=== PATIENT | female | born 1990 | race Caucasian/White ===

== ENCOUNTER 2016-07-10 14:33 | Emergency (ER) | payer OTHER ==
[~2016-07-10] VITALS: Ht 154.9 cm; Wt 51.7 kg
--- NOTE | 2016-07-10 17:44 | ED GI/GU/ABDOMINAL COMPLAINT ---
History of Present Illness General Chief Complaint: Female Urogenital Problems Stated Complaint: PELVIC PAIN,SPOTTING ?ISSUES WITH IUD Source: patient Exam Limitations: no limitations Vital Signs & Intake/Output Vital Signs & Intake/Output Vital Signs Date Time Temp Pulse Resp B/P B/P Pulse O2 O2 Flow FiO2 Mean Ox Delivery Rate 07/10 1847 97.4 76 12 101/61 99 Room Air 07/10 1437 98.1 82 15 110/71 99 Room Air Room Air ED Intake and Output 07/11 0000 07/10 1200 Intake Total Output Total Balance Patient 114 lb Weight Allergies Coded Allergies: No Known Allergies (07/10/16) Reconcile Medications Ibuprofen 800 MG TABLET 1 TAB PO TID PAIN Triage Note: PT TO ED FOR C/C OF PELVIC PAIN THAT STARTED TWO DAYS AGO. PT HAS AN IUD WHICH SHE HAS HAD FOR 7 MONTHS AND HAS HAD IRREGULAR PERIODS, BUT REPORTS SHE IS NOW SPOTTING WHICH IS ABNORMAL FOR HER. LMP June. DENIES URINARY ISSUES. Triage Nurses Notes Reviewed? yes ? n Is pt currently ? No Onset: Abrupt Duration: day(s):, intermittent Timing: recent history Location: pelvic No Modifying Factors: none HPI: 25-year-old female comes into emergency room for further evaluation of lower abdominal pain and intermittent vaginal spotting is been going on for the past few days. Patient has had an IUD in place since November of last year. Denies any fever chills vomiting. Denies any changes in bowel movement. Denies any vaginal discharge or urinary symptoms. Pain is located low in the pelvis. Patient reports that she doesn't usually get this intermittent spotting which is not normal for her. She cannot get in with her new [employer] TECHNICIAN doctor to August 04. Denies any other associated symptoms. (VERO OTERO) Past History Travel History Traveled to [place] past 21 day No Medical History Any Pertinent Medical History? 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 No (VERO OTERO) Review of Systems Review of Systems Constitutional: Reports: no symptoms. EENTM: Reports: no symptoms. Respiratory: Reports: no symptoms. Cardiovascular: Reports: no symptoms. GI: Reports: see HPI. Genitourinary: Reports: see HPI. Musculoskeletal: Reports: no symptoms. Skin: Reports: no symptoms. Neurological/Psychological: Reports: no symptoms. Hematologic/Endocrine: Reports: no symptoms. Immunologic/Allergic: Reports: no symptoms. All Other Systems: Reviewed and Negative (VERO OTERO) Physical Exam Physical Exam General Appearance: well developed/nourished, alert, awake Head: atraumatic, normal appearance Eyes: Bilateral: normal appearance. Ears, Nose, Throat, Mouth: hearing grossly normal, moist mucous membrane Neck: normal inspection, full range of motion Respiratory: normal breath sounds, no respiratory distress Cardiovascular: regular rate/rhythm Gastrointestinal: soft, tenderness Back: normal inspection Extremities: normal range of motion Neurologic/Psych: awake, alert, oriented x 3, normal gait Skin: intact, normal color Core Measures ACS in differential dx? No Severe Sepsis Present: No Septic Shock Present: No (VERO OTERO) Progress Differential Diagnosis: appendicitis, biliary colic, bowel obstruction, colon cancer, cholecystitis, diverticulitis, ectopic , endometritis, gastritis, hepatitis, hernia, hemorrhoids, inflamm bowel dis, Kirti-Mustapha tear, ovarian cyst, ovarian torsion, pancreatitis, PID/cervicitis, peptic ulcer, PUD/ GERD, perforated viscous, SBO, threatened AB, UTI/pyelo Plan of Care: Orders Procedure Date/time Status COMPREHENSIVE METABOLIC PANEL 07/10 1659 Complete CBC WITHOUT DIFFERENTIAL 07/10 1659 Complete URINE 07/10 1441 Complete URINALYSIS 07/10 1441 Complete Laboratory Tests 07/10/16 1750: Anion Gap 13, Estimated GFR > 60, BUN/Creatinine Ratio 18.3, Glucose 88, Calcium 9.7, Total Bilirubin 0.3, AST 20, ALT 32, Alkaline Phosphatase 56, Total Protein 7.6, Albumin 4.7, Globulin 2.9, Albumin/Globulin Ratio 1.6, CBC w Diff NO MAN DIFF REQ, RBC 4.43, MCV 74.8 L, MCH 23.6 L, RDW 16.4 H, MPV 9.3, Gran % 47.5, Lymphocytes % 39.2, Monocytes % 10.4 H, Eosinophils % 1.8, Basophils % 1.1, Absolute Granulocytes 2.8, Absolute Lymphocytes 2.3, Absolute Monocytes 0.6, Absolute Eosinophils 0.1, Absolute Basophils 0.1, PUBS MCHC 31.6 L 07/10/16 1450: Urinalysis MOD H, Urine Color YEL, Urine Clarity HAZY H, Urine pH 6.0, Ur Specific [place] 1.020, Urine Protein NEG, Urine Ketones NEG, Urine Nitrite NEG, Urine Bilirubin NEG, Urine Urobilinogen 0.2, Ur Leukocyte Esterase TRACE H, Ur Microscopic SEDIMENT EXAMINED, Urine RBC 1-3, Urine WBC 1-3 H, Ur Epithelial Cells MANY H, Urine Bacteria MOD H, Urine Hemoglobin LARGE H, Urine Glucose NEG, Urine Test NEGATIVE Diagnostic Imaging: Viewed by Me: Ultrasound. Discussed w/RAD: Ultrasound. Radiology Impression: SERVICE DATE: 07/10/16 EXAM TYPE: US - US- TRANSVAGINAL EXAMINATION: US TRANSVAGINAL CLINICAL INFORMATION: Pelvic pain. Confirm IUD placement. COMPARISON: No relevant prior studies are available for comparison. TECHNIQUE: Transabdominal and transvaginal imaging was performed. FINDINGS: The uterus is retroverted and measures 6.7 x 4.1 x 5.4 cm (sagittal x AP x transverse) for a uterine volume of 77.7 mL. There are no myometrial lesions. The cervical length measures 2.4 cm. The endometrium is unremarkable with a thickness of 0.5 cm. An IUD is noted within the endometrial cavity. The right ovary is sonographically unremarkable and measures 5.3 x 2.2 x 2.1 cm ( volume = 13.5 mL). There is Doppler detectable vascular flow to the right ovary. The left ovary is sonographically unremarkable and measures 4.0 x 2.5 x 2.1 cm ( volume = 11.3 mm). There is Doppler detectable vascular flow to the left ovary. There is no free fluid within the pelvis. IMPRESSION: 1. IUD noted within the endometrial cavity. Retroverted uterus. 2. Normal ultrasound examination of the bilateral ovaries. Doppler detectable vascular flow within the bilateral ovaries. DICTATED BY: MANFRED PUGH MD Initial ED EKG: none (MAGDALENA TORRES,VERO) Departure Departure Disposition: HOME OR SELF CARE Condition: Stable Clinical Impression Primary Impression: Pelvic pain Referrals: TEDDY ZHENG MD (PCP/Family) BALBIR CHEUNG DO Additional Instructions: Take ibuprofen as prescribed. Follow-up with [employer] TECH[employer] doctor provided. Return if any concerns worsening symptoms. Please go over all results of today's visit with your primary care doctor. Contact your primary care doctor to let them know you were here in the emergency room. There may be nonspecific findings which may not be related to your visit today here in the emergency room but may require further evaluation and chronic monitoring by your primary care doctor. If you had a laceration today the chance of foreign body always remains. You should follow-up with your primary care doctor for recheck in 3-5 days for a wound check. If you had an x-ray done there is a chance that a fracture could have been missed on initial read and you should follow-up with your primary care doctor for repeat x-rays if symptoms persist. If your blood pressure was elevated here in the emergency room please have rechecked by her primary care doctor within the next 48 hours by your primary care doctor. If you were prescribed a narcotic here in the emergency room or any type of controlled substances you're not allowed to drive while taking this medication or operate any type of heavy machinery. Narcotics can make you feel lightheaded dizziness nausea and can cause constipation. You may need to tow picker a stool softener. Thank you for choosing [facility] emergency room. Please return to the emergency room immediately if you have any other concerns worsening of symptoms. Departure Forms: Customer Survey General Discharge Information Prescriptions: Current Visit Scripts Ibuprofen 1 TAB PO TID #30 TAB Comments 07/10/2016 No suspicion for appendicitis. Discussed early possibility the patient. No symptoms: Appendicitis. I feel the pain is likely related to the patient's IUD. Patient declined me removing it. She is going to follow-up with [facility] TECHNICIAN doctor. No guarding on exam. Hemodynamically stable. Understands and agrees with plan of care. (VERO OTERO) PA/HANDBAG PARTS CUTTER Co-Sign Statement Statement: ED Attending supervision documentation- I saw and evaluated the patient. I have also reviewed all the pertinent lab results and diagnostic results. I agree with the findings and the plan of care as documented in the PA's/HANDBAG PARTS CUTTER's documentation. x I have reviewed the ED Record and agree with the PA's/HANDBAG PARTS CUTTER's documentation. [] Additions or exceptions (if any) to the PAs/HANDBAG PARTS CUTTER's note and plan are summarized below: [] (BOZENA YU,FRANCO)
[2016-07-10 18:05] LABS: ABSOLUTE BASOPHIL COUNT 0.1 /CUMM (0.0-0.2); ABSOLUTE EOSINOPHIL COUNT 0.1 /CUMM (0.0-0.7); ABSOLUTE GRANULOCYTE CT 2.8 /CUMM (1.4-6.5); ABSOLUTE LYMPH COUNT 2.3 /CUMM (1.2-3.4); ABSOLUTE MONOCYTE COUNT 0.6 /CUMM (0.10-0.60); BASOPHIL % 1.1 % (0.0-2.0); EOSINOPHIL % 1.8 % (0-5); GRANULOCYTE % 47.5 % (42.2-75.2); HEMATOCRIT 33.1 % (37-47); MEAN CORPUSCULAR HGB 23.6 PG (27.0-31.0); MEAN CORPUSCULAR HGB CONC 31.6 G/DL (33.0-37.0); MEAN CORPUSCULAR VOLUME 74.8 FL (81.0-99.0); MEAN PLATELET VOLUME 9.3 FL (7.4-10.4); PLATELET COUNT 303 /CUMM (130-400); RBC DISTRIBUTION WIDTH 16.4 % (11.5-14.5); RED BLOOD CELL CT 4.43 /CUMM (4.20-5.40); WHITE BLOOD CELL COUNT 5.8 /CUMM (4.8-10.8)
[2016-07-10 18:47] VITALS: BP 101/61
--- NOTE | 2016-07-10 19:51 | ULTRASOUND REPORT ---
EXAMINATION: US TRANSVAGINAL CLINICAL INFORMATION: Pelvic pain. Confirm IUD placement. COMPARISON: No relevant prior studies are available for comparison. TECHNIQUE: Transabdominal and transvaginal imaging was performed. FINDINGS: The uterus is retroverted and measures 6.7 x 4.1 x 5.4 cm (sagittal x AP x transverse) for a uterine volume of 77.7 mL. There are no myometrial lesions. The cervical length measures 2.4 cm. The endometrium is unremarkable with a thickness of 0.5 cm. An IUD is noted within the endometrial cavity. The right ovary is sonographically unremarkable and measures 5.3 x 2.2 x 2.1 cm (volume = 13.5 mL). There is Doppler detectable vascular flow to the right ovary. The left ovary is sonographically unremarkable and measures 4.0 x 2.5 x 2.1 cm (volume = 11.3 mm). There is Doppler detectable vascular flow to the left ovary. There is no free fluid within the pelvis. IMPRESSION: 1. IUD noted within the endometrial cavity. Retroverted uterus. 2. Normal ultrasound examination of the bilateral ovaries. Doppler detectable vascular flow within the bilateral ovaries.
[2016-07-10] MEDS ORDERED: IBUPROFEN800 M1 PO (20:21)
== END 2016-07-10 20:20 ==
LOC: ERH 14:33
PROVIDERS: Physician Assistant Medical
DX: R10.2 Pelvic and perineal pain (principal); N93.9 Abnormal uterine and vaginal bleeding, unspecified
CPT/HCPCS: 81001; 81025

== ENCOUNTER 2017-10-02 08:22 | Inpatient (IN) | payer OTHER ==
[~2017-10-02] VITALS: Ht 154.9 cm; Wt 61.2 kg
[~2017-10-02 08:22] MED LIST: IBUPROFEN800 M1 PO
[2017-10-02 08:47] VITALS: BP 109/63
[2017-10-02 09:31] LABS: ABSOLUTE BASOPHIL COUNT 0 /CUMM (0.0-0.2); ABSOLUTE EOSINOPHIL COUNT 0.1 /CUMM (0.0-0.7); ABSOLUTE GRANULOCYTE CT 5.3 /CUMM (1.4-6.5); ABSOLUTE LYMPH COUNT 1.6 /CUMM (1.2-3.4); ABSOLUTE MONOCYTE COUNT 0.4 /CUMM (0.10-0.60); BASOPHIL % 0.3 % (0.0-2.0); EOSINOPHIL % 0.7 % (0-5); GRANULOCYTE % 71.9 % (42.2-75.2); HEMATOCRIT 32.1 % (37-47); MEAN CORPUSCULAR HGB 28.3 PG (27.0-31.0); MEAN CORPUSCULAR HGB CONC 33.6 G/DL (33.0-37.0); MEAN CORPUSCULAR VOLUME 84.3 FL (81.0-99.0); MEAN PLATELET VOLUME 9.7 FL (7.4-10.4); PLATELET COUNT 199 /CUMM (130-400); RBC DISTRIBUTION WIDTH 19.5 % (11.5-14.5); RED BLOOD CELL CT 3.81 /CUMM (4.20-5.40); WHITE BLOOD CELL COUNT 7.3 /CUMM (4.8-10.8)
--- NOTE | 2017-10-02 11:29 | History & Physical ---
General Information and HPI MD Statement: I have seen and personally examined SUDHA ARAMBULA and documented this H&P. The patient is a 27 year old female at 39 weeks and 2 days gestation who presented with a chief complaint of elective induction of labor. 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 Last Menstrual Period: 12/31/2016 Estimated Delivery Date: 10/17/17 Past driving teacher History: none Past Pregnancies Past Pregnancies: 1 Date of Delivery: 07/02/2010 Gestational Age: 40 Weight: 7lb7oz Type of Delivery: vaginal Complications: none Past Pregnancies: 2 Date of Delivery: 03/02/2013 Gestational Age: 42 Weight: 10lb Type of Delivery: vaginal Complications: Vaginal breech Medical History Blood Transfusion Hx: No Neurological: NONE EENT: NONE Cardiovascular: NONE Respiratory: NONE Gastrointestinal: NONE Hepatic: NONE Renal: NONE Musculoskeletal: NONE Psychiatric: depression, DISOCIATIVE DISORDER PANIC DISORDER OCD Endocrine: NONE Blood Disorders: NONE Cancer(s): 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 Home Who Do You Live With? spouse, child Primary Language: Amharic Smoking Status: Never Smoked ETOH Use: denies use Illicit Drug Use: denies illicit drug use Living Will? unknown Power of Ripening Room Hand/HCP? unknown Employment History Employment Unemployed Review of Systems Review of Systems Constitutional: Denies: no symptoms. EENTM: Denies: no symptoms. Cardiovascular: Denies: no symptoms. Respiratory: Denies: no symptoms. GI: Denies: no symptoms. Genitourinary: Denies: no symptoms. Musculoskeletal: Denies: no symptoms. Skin: Denies: no symptoms. Neurological/Psychological: Denies: no symptoms. Hematologic/Endocrine: Denies: no symptoms. Immunologic/Allergic: Denies: no symptoms. All Other Systems: Reviewed and Negative Date of LMP: 12/31/16 Post Menopausal: No Date of Last Pap Smear: 03/06/17 Exam & Diagnostic Data Last 24 Hrs of Vital Signs/I&O Vital Signs Date Time Temp Pulse Resp B/P B/P Pulse O2 O2 Flow FiO2 Mean Ox Delivery Rate 10/02 0847 109/63 Intake & Output 10/02 1600 10/02 0800 10/02 0000 Intake Total Output Total Balance Patient 61.235 kg Weight Obstetric Exam Wgt Gained During : 18 lbs Pelvimetry: Gynecoid Dilation (cm): 2 Effacement (%): 50 Station: -3 Membranes: intact Fluid: Intact membranes Fundal Height (cm): 38 Multiple Gestation? No Contractions: Q2-5 irregular Infant #1 - FHR Baseline: 150 Category: 1 Estimated Weight: 3000 grams Presentation: Cephalic Patient for Induction? Yes Way Score Way Score Response Value Cervix Position: mid-position 1 Cervix Consistency: soft 2 Cervix Effacement: 30-50% 1 Cervix Dilation: 1-2 cm 1 Cervix Station: -3 0 Total 5 Physical Exam General Appearance Alert, Oriented X3, Cooperative, No Acute Distress Skin No Rashes HEENT Atraumatic Neck Supple Cardiovascular Regular Rate, Normal S1, Normal S2 Lungs Clear to Auscultation, Normal Air Movement Abdomen Normal Bowel Sounds, Soft Neurological Normal Gait, Normal Speech, Strength at 5/5 X4 Ext, Normal Tone, Sensation Intact, Cranial Nerves 3-12 NL, Reflexes 2+ Extremities No Edema Vascular Normal Pulses, Pulses Symmetrical Breasts Breast appear nl Reproductive (FEMALE) Normal female genitalia Pelvic (FEMALE) Appearance Normal Rectal No Fissures, No Hemorrhoids Labs Blood Type & Rh: A positive Antibody Screen: negative Hct/Hgb & Platelets #1: 28/274 Hct/Hgb & Platelets #2: 32.1/186 Rubella: Immune VDRL #1: negative VDRL #2: negative HbsAg: negative HIV #1: negative HIV #2 negative 1 Hr P Group B Strep: negative 09/09/17 Initial Ultrasound: WNL Anatomy Ultrasound: Level 2 wnl and posterior placenta Ultrasound for EFW: 2525 grams at 36 weeks. Genetic Testing: NIPT negative AFP wnl Last 24 Hrs of Labs/Trever: Laboratory Tests 10/02/17 0837: CBC w Diff NO MAN DIFF REQ, RBC 3.81 L, MCV 84.3, MCH 28.3, MCHC 33.6, RDW 19.5 H, MPV 9.7, Gran % 71.9, Lymphocytes % 21.6, Monocytes % 5.5, Eosinophils % 0.7 , Basophils % 0.3, Absolute Granulocytes 5.3, Absolute Lymphocytes 1.6, Absolute Monocytes 0.4, Absolute Eosinophils 0.1, Absolute Basophils 0, Urine Color YEL, Urine Clarity HAZY H, Urine pH 6.5, Ur Specific [place] 1.020, Urine Protein NEG, Urine Ketones NEG, Urine Nitrite NEG, Urine Bilirubin NEG, Urine Urobilinogen 2.0 H, Ur Leukocyte Esterase TRACE H, Ur Microscopic SEDIMENT EXAMINED, Urine WBC 5-10 H, Ur Epithelial Cells MANY H, Urine Bacteria MOD H, Urine Hemoglobin NEG, Urine Glucose NEG Assessment/Plan Assessment/Plan: 27 year old Para 2 at 39w2d by first trimester ultrasound for elective induction of labor as favorable cervix. patient with complicated by Anxiety disorder and iron deficiency anemia. Induction. Favorable cervix and contractions noted. I recommended a cervical mendenhall for ripening agent and reevaluate need for oxytocin. Risk reduction by being induced now for risks of preeclampsia, oligohydramnios, meconium stained fluid. Risks of induction being abnormal heart rate and infection and appx 20% or less need for csection given current way score. Once cervix is further dilated than amniotomy and or oxytocin to complete induction process. Pain mgmt plans including NO gas and epidural reviewed. Catagory 1 tracing noted. Anemia. S/p Venofer 1000 mg for iron deficiency anemia. Hct is stable at 32. Goal for former agent was to reduce need for transfusion. Anxiety. Sees fe Yeung in the area. To follow up with same in the week after delivery. EPDS to be done postdelivery. Consideration for VNS postdelivery to assess for depression and or worsening anxiety. She is not taking medication for same. Treatment plan outlined with family and nursing. Ample time for questions. Discussed value of cervical mendenhall and what it does to cervix. Cervical mendenhall placed at appx 0915. 22 estonian mendenhall and 30 cc instilled into balloon. As Ranked By This Provider Problem List: 1. 2. Anxiety Core Measures Venous Thromboembolism VTE Risk Factors / No Mechanical VTE Prophylaxis d/t N/A MechProphylax Ordered No VTE Pharm Prophylaxis d/t Other Comment: ALPS in labor Attending MD Review Statement Attending Statement Attending MD Statement: examined this patient, discussed with family, discussed w/nursing
--- NOTE | 2017-10-02 14:33 | PN- OBGYN ---
Surgical Brief Attending Note Brief Attending Note: Notified by Nursing that cervical mendenhall displaced Now feeling pains more intense Afebrile and VSS Catagory 1 tracing Oxytocin at 6 cc per hour 4/70/-3/mid/soft. Liu now 7. Epidural requested. Good cervical change with mendenhall and oxytocin After epidural consider amniotomy Anticipate vaginal . Gynecoid pelvis and tested to 10 lbs. GBBS negative
--- NOTE | 2017-10-02 19:42 | PN- OBGYN ---
Surgical Brief Attending Note Brief Attending Note: Feeling more pressure Vitals stable and afebrile Was 6 cm Now 8 cm/80/-3/LOT/no molding AROM clear fluid Catagory 1 tracing Oxytocin at 6 cc per hour Will stop oxytocin as amniotomy for induction agent. Anticipate vaginal .
--- NOTE | 2017-10-02 23:09 | Labor & Delivery Summary ---
Delivery Summary Vaginal Delivery: Vaginal: vertex Episiotomy/Lacerations: Episiotomy/Lacerations: none Placenta: Placenta: spontanteous, normal, 3 vessel, nuchal cord (x_) (NUCHAL X 2 REDUCED) Anesthesia: Epidural Cord PH Value: NA Apgars - 1 Min: 9 Apgars - 5 Min: 9 Additional Comments: Delivered through intact perineum LOT at time of delivery Nuchal x 2 reduced Right shoulder anterior Shoulders delivered spontaneously Male with apgars of 9 and 9 Placenta passed spontaneous and intact after start of oxytocin for third stage EBL 200 cc Placenta grossly intact with normal insertion of cord. No lacerations and rectum intact.
--- NOTE | 2017-10-04 08:48 | PN- OBGYN ---
Surgical Brief Attending Note Brief Attending Note: Seen and evaluated. Offers no complaints AVSS Abdomen soft and fundus firm Hct 32 Rh positive PPD#2 s/p elective induction of labor. Anxiety. Follow up with provider via phone this week. Anemia. She is with stable hct and loss of minimal blood at delivery. Iron rich foods recommended Contraception. IUD in 6 weeks. follow up in 4 weeks DC home today expectations reviewed.
[2017-10-04] MEDS ORDERED: IBUPROFEN100 MG/52 PO (08:50)
== END 2017-10-04 13:01 | DRG 560 ==
LOC: GNO 08:22
PROVIDERS: Obstetrics & Gynecology
PROC: 10E0XZZ Delivery of Products of Conception, External Approach (ICD-10-PCS; principal; 2017-10-02)
PROC: 3E033VJ Introduction of Other Hormone into Peripheral Vein, Percutaneous Approach (ICD-10-PCS; 2017-10-02)
PROC: 0U7C7ZZ Dilation of Cervix, Via Natural or Artificial Opening (ICD-10-PCS; 2017-10-02)
DX: O69.81X0 Labor and delivery complicated by cord around neck, without compression, not applicable or unspecified (principal); O99.344 Other mental disorders complicating childbirth; O99.02 Anemia complicating childbirth; F41.9 Anxiety disorder, unspecified; Z3A.39 39 weeks gestation of pregnancy; Z37.0 Single live birth; D50.9 Iron deficiency anemia, unspecified
CPT/HCPCS: GNOP; GNOS; 36415; 81001; 87086; J7120